=== PATIENT | female | born 1960 | race Caucasian/White ===

== ENCOUNTER 2022-09-06 08:19 | Inpatient (IN) | payer BC, SELFPAY ==
[~2022-09-06] VITALS: Ht 162.6 cm; Wt 98.1 kg
[2022-09-06] MEDS ORDERED: AMIT25TA17 PO (08:49)
[2022-09-06] MEDS ORDERED: LEVO100T5 PO (08:49)
[2022-09-06] MEDS ORDERED: JARD1TAB PO (08:49)
[2022-09-06] MEDS ORDERED: FLUO40CA PO (08:49)
[2022-09-06] MEDS ORDERED: ENTR1TAB PO (08:49)
[2022-09-06] MEDS ORDERED: METO1TAB32 (08:49)
[2022-09-06] MEDS ORDERED: OMEP10CASR PO (08:49)
[2022-09-06] MEDS ORDERED: ROSU20TA5 PO (08:49)
[2022-09-06] MEDS ORDERED: ASPI81CH33 PO (08:49)
[2022-09-06 10:11] LABS: BASO % 0.6 % (0.0-1.0); EOS # 0.1 10^3/uL (0.0-0.5); EOS % 2.3 % (0.0-3.0); HEMATOCRIT 42.5 % (36.0-47.0); HEMOGLOBIN 13.8 g/dl (12.0-15.5); LYMPH # 1.5 10^3/uL (1.5-5.0); LYMPH % 29.8 % (24.0-44.0); MEAN CORPUSCULAR HEMOGLOBIN 30.9 pg (27.0-33.0); MEAN CORPUSCULAR HGB CONC 32.5 g/dl (32.0-36.5); MEAN CORPUSCULAR VOLUME 95.3 fl (80.0-96.0); MONO # 0.4 10^3/uL (0.0-0.8); MONO % 8.2 % (2.0-8.0); NEUTROPHILS # 2.9 10^3/uL (1.5-8.5); NEUTROPHILS % 58.7 % (36.0-66.0); PLATELET COUNT, AUTOMATED 252 10^3/uL (150-450); RED BLOOD COUNT 4.46 10^6/uL (4.00-5.40); WHITE BLOOD COUNT 4.9 10^3/uL (4.0-10.0)
[2022-09-06 10:27] LABS: INR 0.89; PROTHROMBIN TIME 12.2 SECONDS (12.5-14.5)
[2022-09-06 10:33] LABS: BLOOD UREA NITROGEN 18 MG/DL (9-23); CALCIUM LEVEL 8.7 MG/DL (8.3-10.6); CARBON DIOXIDE LEVEL 31 MMOL/L (20-31); CHLORIDE LEVEL 106 MMOL/L (98-107); CK-MB VALUE MASS 1.3 NG/ML (<3.6); CPK CREATINE PHOSPHOKINASE 67 U/L (34-145); CREATININE FOR GFR 0.57 MG/DL (0.55-1.30); GLOMERULAR FILTRATION RATE > 60.0 (>45); GLUCOSE, FASTING 95 MG/DL (74-106); MB/CK RELATIVE INDEX 1.94 (< OR =4); POTASSIUM SERUM 4.5 MMOL/L (3.5-5.1); SODIUM LEVEL 142 MMOL/L (136-145)
[2022-09-06 11:21] LABS: RSV AMPLIFICATION NEGATIVE (NEGATIVE)
[2022-09-06 11:24] LABS: ERYTHROCYTE SEDIMENTATION RATE 19 mm/hr (0-30)
[2022-09-06] MEDS ORDERED: METOCLOPRAMIDE INJ 10MG/2ML VIAL IV ONE (12:30)
[2022-09-06] MEDS ORDERED: ACETAMINOPHEN TAB 650MG DOSE (2X325MG) PO ONE (12:30)
[2022-09-06] MEDS ORDERED: ASPIRIN 81MG CHEW TABLET PO ONE (12:35)
[2022-09-06] MEDS: CLOPIDOGREL 75 MG TAB PO SCH (13:40)
[2022-09-06] MEDS: ENOXAPARIN 40MG/0.4ML SYRINGE (J1650 PER 10MG) SC SCH (13:41)
[2022-09-06] MEDS ORDERED: ASPI81TA26 PO (14:06)
[2022-09-06] MEDS ORDERED: VITA200031 PO (14:06)
[2022-09-06] MEDS ORDERED: METO1TAB33 PO (14:06)
[2022-09-06] MEDS ORDERED: ZEGE20CA4 PO (14:06)
[2022-09-06] MEDS ORDERED: MAGN400T2 PO (14:06)
[2022-09-06] MEDS ORDERED: HOME MED LIST COMPLETE! XX SCH (14:10)
[2022-09-06] MEDS: MAGNESIUM OXIDE 400MG TAB (MAG-OX) PO SCH (15:26)
[2022-09-06] MEDS: METOPROLOL SUCC (TopROL XL) 100MG *XL* TAB PO SCH (15:26)
[2022-09-06] MEDS: ENTRESTO 24-26MG TABLET (SACUBITRIL/VALSARTAN) PO SCH ×2 (15:30→21:00)
[2022-09-06 15:45] VITALS: BP 139/67
[2022-09-06 20:00] VITALS: BP 128/66
[2022-09-06] MEDS: FLUoxetine 20MG CAP PO SCH (20:53)
[2022-09-06] MEDS: AMITRIPTYLINE 25MG TABLET PO SCH (20:53)
[2022-09-06] MEDS: ROSUVASTATIN 10 MG TAB (CRESTOR) PO SCH (20:53)
[2022-09-06] MEDS ORDERED: diphenhydrAMINE 50MG/ML VIAL IV STA (21:00)
[2022-09-06] MEDS ORDERED: FAMOTIDINE 20 MG TAB PO STA (21:00)
[2022-09-06] MEDS ORDERED: ENTRESTO 24-26MG TABLET (SACUBITRIL/VALSARTAN) PO SCH (21:00)
[2022-09-06] MEDS ORDERED: ISOVUE-370 76% 100ML VIAL As Ordered ONE (21:16)
[2022-09-07] VITALS (9 sets, daily range): BP systolic 94–153; BP diastolic 56–84
[2022-09-07] MEDS ORDERED: ACETAMINOPHEN TAB 650MG DOSE (2X325MG) PO ONE (01:00)
[2022-09-07] MEDS: LEVOTHYROXINE 100MCG TABLET (0.1MG) PO SCH (06:15)
[2022-09-07 06:28] LABS: HEMATOCRIT 40.9 % (36.0-47.0); HEMOGLOBIN 13.2 g/dl (12.0-15.5); MEAN CORPUSCULAR HEMOGLOBIN 30.8 pg (27.0-33.0); MEAN CORPUSCULAR HGB CONC 32.3 g/dl (32.0-36.5); MEAN CORPUSCULAR VOLUME 95.6 fl (80.0-96.0); PLATELET COUNT, AUTOMATED 251 10^3/uL (150-450); RED BLOOD COUNT 4.28 10^6/uL (4.00-5.40); WHITE BLOOD COUNT 4.5 10^3/uL (4.0-10.0)
[2022-09-07 06:55] LABS: BLOOD UREA NITROGEN 20 MG/DL (9-23); CALCIUM LEVEL 8.5 MG/DL (8.3-10.6); CARBON DIOXIDE LEVEL 29 MMOL/L (20-31); CHLORIDE LEVEL 105 MMOL/L (98-107); CREATININE FOR GFR 0.72 MG/DL (0.55-1.30); GLOMERULAR FILTRATION RATE > 60.0 (>45); GLUCOSE, FASTING 89 MG/DL (74-106); MAGNESIUM LEVEL 2.2 MG/DL (1.8-2.4); PHOSPHORUS LEVEL 5.9 MG/DL (2.4-5.1); POTASSIUM SERUM 5.3 MMOL/L (3.5-5.1); SODIUM LEVEL 141 MMOL/L (136-145)
[2022-09-07] MEDS ORDERED: NS 1,000 ML IV ONE (07:15)
[2022-09-07] MEDS: ENTRESTO 24-26MG TABLET (SACUBITRIL/VALSARTAN) PO SCH ×2 (08:30→20:22)
[2022-09-07] MEDS: METOPROLOL SUCC (TopROL XL) 100MG *XL* TAB PO SCH (08:30)
[2022-09-07] MEDS: CLOPIDOGREL 75 MG TAB PO SCH (08:40)
[2022-09-07] MEDS: ENOXAPARIN 40MG/0.4ML SYRINGE (J1650 PER 10MG) SC SCH (08:40)
[2022-09-07] MEDS: MAGNESIUM OXIDE 400MG TAB (MAG-OX) PO SCH (08:40)
[2022-09-07] MEDS: ASPIRIN 81MG ENTERIC TABLET PO SCH (08:40)
[2022-09-07] MEDS: POLYVINYL ALCOHOL OPHTH SOLN 15ML (LIQUITEARS) OU SCH ×3 (08:48→20:22)
[2022-09-07] MEDS: AMITRIPTYLINE 25MG TABLET PO SCH (20:21)
[2022-09-07] MEDS: FLUoxetine 20MG CAP PO SCH (20:21)
[2022-09-07] MEDS: ROSUVASTATIN 10 MG TAB (CRESTOR) PO SCH (20:21)
[2022-09-08 03:25] VITALS: BP 105/50
[2022-09-08] MEDS: LEVOTHYROXINE 100MCG TABLET (0.1MG) PO SCH (05:08)
[2022-09-08] MEDS ORDERED: diphenhydrAMINE 50MG/ML VIAL IV STA (07:23)
[2022-09-08] MEDS ORDERED: FAMOTIDINE 20 MG TAB PO ONE (07:25)
[2022-09-08] MEDS: ENTRESTO 24-26MG TABLET (SACUBITRIL/VALSARTAN) PO SCH ×2 (07:27→20:06)
[2022-09-08] MEDS: METOPROLOL SUCC (TopROL XL) 100MG *XL* TAB PO SCH (07:27)
[2022-09-08] MEDS: MAGNESIUM OXIDE 400MG TAB (MAG-OX) PO SCH (07:39)
[2022-09-08] MEDS: ENOXAPARIN 40MG/0.4ML SYRINGE (J1650 PER 10MG) SC SCH (07:39)
[2022-09-08] MEDS: ASPIRIN 81MG ENTERIC TABLET PO SCH (07:39)
[2022-09-08] MEDS: POLYVINYL ALCOHOL OPHTH SOLN 15ML (LIQUITEARS) OU SCH ×3 (07:39→20:06)
[2022-09-08] MEDS: CLOPIDOGREL 75 MG TAB PO SCH (07:39)
[2022-09-08 08:03] LABS: BLOOD UREA NITROGEN 19 MG/DL (9-23); CALCIUM LEVEL 8.5 MG/DL (8.3-10.6); CARBON DIOXIDE LEVEL 28 MMOL/L (20-31); CHLORIDE LEVEL 106 MMOL/L (98-107); CREATININE FOR GFR 0.61 MG/DL (0.55-1.30); GLOMERULAR FILTRATION RATE > 60.0 (>45); GLUCOSE, FASTING 92 MG/DL (74-106); POTASSIUM SERUM 4.4 MMOL/L (3.5-5.1); SODIUM LEVEL 140 MMOL/L (136-145)
[2022-09-08] MEDS ORDERED: ISOVUE-370 76% 100ML VIAL As Ordered ONE ×2 (08:04→08:28)
[2022-09-08 09:30] VITALS: BP 114/55
[2022-09-08 10:03] LABS: THYROID STIMULATING HORMONE 2.184 uIU/ML (0.55-4.78)
[2022-09-08 12:00] VITALS: BP 137/65
[2022-09-08] MEDS ORDERED: diphenhydrAMINE 50MG/ML VIAL IV ONE (14:00)
[2022-09-08 16:00] VITALS: BP 152/72
[2022-09-08 20:00] VITALS: BP 120/74
[2022-09-08] MEDS: AMITRIPTYLINE 25MG TABLET PO SCH (20:06)
[2022-09-08] MEDS: FLUoxetine 20MG CAP PO SCH (20:06)
[2022-09-08] MEDS: ROSUVASTATIN 10 MG TAB (CRESTOR) PO SCH (20:06)
[2022-09-09] VITALS: BP 125/65
[2022-09-09 04:00] VITALS: BP 139/58
[2022-09-09] MEDS: LEVOTHYROXINE 100MCG TABLET (0.1MG) PO SCH (05:13)
[2022-09-09 08:21] VITALS: BP 140/77
[2022-09-09] MEDS: ASPIRIN 81MG ENTERIC TABLET PO SCH (09:58)
[2022-09-09] MEDS: CLOPIDOGREL 75 MG TAB PO SCH (09:58)
[2022-09-09] MEDS: MAGNESIUM OXIDE 400MG TAB (MAG-OX) PO SCH (09:58)
[2022-09-09] MEDS: ENOXAPARIN 40MG/0.4ML SYRINGE (J1650 PER 10MG) SC SCH (09:58)
[2022-09-09] MEDS: POLYVINYL ALCOHOL OPHTH SOLN 15ML (LIQUITEARS) OU SCH ×3 (09:59→20:18)
[2022-09-09] MEDS: METOPROLOL SUCC (TopROL XL) 100MG *XL* TAB PO SCH (10:52)
[2022-09-09] MEDS: ENTRESTO 24-26MG TABLET (SACUBITRIL/VALSARTAN) PO SCH ×2 (10:52→20:17)
[2022-09-09 11:57] VITALS: BP 145/66
[2022-09-09 16:34] VITALS: BP 143/65
[2022-09-09 20:00] VITALS: BP 139/69
[2022-09-09] MEDS: ROSUVASTATIN 10 MG TAB (CRESTOR) PO SCH (20:16)
[2022-09-09] MEDS: AMITRIPTYLINE 25MG TABLET PO SCH (20:17)
[2022-09-09] MEDS: FLUoxetine 20MG CAP PO SCH (20:18)
[2022-09-10] VITALS (8 sets, daily range): BP systolic 102–149; BP diastolic 51–85
[2022-09-10] MEDS: LEVOTHYROXINE 100MCG TABLET (0.1MG) PO SCH (05:09)
[2022-09-10 06:02] LABS: HEMATOCRIT 39.7 % (36.0-47.0); HEMOGLOBIN 12.8 g/dl (12.0-15.5); MEAN CORPUSCULAR HEMOGLOBIN 30.8 pg (27.0-33.0); MEAN CORPUSCULAR HGB CONC 32.2 g/dl (32.0-36.5); MEAN CORPUSCULAR VOLUME 95.7 fl (80.0-96.0); PLATELET COUNT, AUTOMATED 220 10^3/uL (150-450); RED BLOOD COUNT 4.15 10^6/uL (4.00-5.40); WHITE BLOOD COUNT 4.9 10^3/uL (4.0-10.0)
[2022-09-10 06:32] LABS: BLOOD UREA NITROGEN 18 MG/DL (9-23); CALCIUM LEVEL 8.6 MG/DL (8.3-10.6); CARBON DIOXIDE LEVEL 30 MMOL/L (20-31); CHLORIDE LEVEL 106 MMOL/L (98-107); CREATININE FOR GFR 0.67 MG/DL (0.55-1.30); GLOMERULAR FILTRATION RATE > 60.0 (>45); GLUCOSE, FASTING 94 MG/DL (74-106); MAGNESIUM LEVEL 2.1 MG/DL (1.8-2.4); PHOSPHORUS LEVEL 4.9 MG/DL (2.4-5.1); POTASSIUM SERUM 4.5 MMOL/L (3.5-5.1); SODIUM LEVEL 143 MMOL/L (136-145)
[2022-09-10] MEDS: CLOPIDOGREL 75 MG TAB PO SCH (08:41)
[2022-09-10] MEDS: ENTRESTO 24-26MG TABLET (SACUBITRIL/VALSARTAN) PO SCH ×2 (08:41→21:25)
[2022-09-10] MEDS: ASPIRIN 81MG ENTERIC TABLET PO SCH (08:41)
[2022-09-10] MEDS: POLYVINYL ALCOHOL OPHTH SOLN 15ML (LIQUITEARS) OU SCH ×3 (08:42→21:25)
[2022-09-10] MEDS: MAGNESIUM OXIDE 400MG TAB (MAG-OX) PO SCH (08:42)
[2022-09-10] MEDS: METOPROLOL SUCC (TopROL XL) 100MG *XL* TAB PO SCH (08:42)
[2022-09-10] MEDS: ENOXAPARIN 40MG/0.4ML SYRINGE (J1650 PER 10MG) SC SCH (08:43)
[2022-09-10] MEDS: FLUoxetine 20MG CAP PO SCH (21:24)
[2022-09-10] MEDS: ROSUVASTATIN 10 MG TAB (CRESTOR) PO SCH (21:24)
[2022-09-10] MEDS: AMITRIPTYLINE 25MG TABLET PO SCH (23:04)
[2022-09-11] MEDS: LEVOTHYROXINE 100MCG TABLET (0.1MG) PO SCH (05:14)
[2022-09-11 06:00] VITALS: BP 80/55
[2022-09-11 06:50] VITALS: BP 114/62
[2022-09-11] MEDS: ENTRESTO 24-26MG TABLET (SACUBITRIL/VALSARTAN) PO SCH ×2 (09:00→19:52)
[2022-09-11] MEDS: METOPROLOL SUCC (TopROL XL) 100MG *XL* TAB PO SCH (09:00)
[2022-09-11] MEDS: ENOXAPARIN 40MG/0.4ML SYRINGE (J1650 PER 10MG) SC SCH (09:08)
[2022-09-11] MEDS: CLOPIDOGREL 75 MG TAB PO SCH (09:08)
[2022-09-11] MEDS: ASPIRIN 81MG ENTERIC TABLET PO SCH (09:08)
[2022-09-11] MEDS: MAGNESIUM OXIDE 400MG TAB (MAG-OX) PO SCH (09:08)
[2022-09-11] MEDS: POLYVINYL ALCOHOL OPHTH SOLN 15ML (LIQUITEARS) OU SCH ×3 (09:11→19:52)
[2022-09-11 09:42] VITALS: BP 118/82
[2022-09-11 14:00] VITALS: BP 110/70
[2022-09-11 19:52] VITALS: BP 108/62
[2022-09-11] MEDS: FLUoxetine 20MG CAP PO SCH (19:58)
[2022-09-11] MEDS: ROSUVASTATIN 10 MG TAB (CRESTOR) PO SCH (19:58)
[2022-09-11 20:00] VITALS: BP 107/60
[2022-09-11] MEDS: AMITRIPTYLINE 25MG TABLET PO SCH (23:00)
[2022-09-12] VITALS (12 sets, daily range): BP systolic 97–176; BP diastolic 56–82
[2022-09-12] MEDS: LEVOTHYROXINE 100MCG TABLET (0.1MG) PO SCH (05:02)
[2022-09-12 06:56] LABS: HEMATOCRIT 38.4 % (36.0-47.0); HEMOGLOBIN 12.4 g/dl (12.0-15.5); MEAN CORPUSCULAR HEMOGLOBIN 30.9 pg (27.0-33.0); MEAN CORPUSCULAR HGB CONC 32.3 g/dl (32.0-36.5); MEAN CORPUSCULAR VOLUME 95.8 fl (80.0-96.0); PLATELET COUNT, AUTOMATED 190 10^3/uL (150-450); RED BLOOD COUNT 4.01 10^6/uL (4.00-5.40)
[2022-09-12 07:17] LABS: BLOOD UREA NITROGEN 17 MG/DL (9-23); CARBON DIOXIDE LEVEL 28 MMOL/L (20-31); CHLORIDE LEVEL 106 MMOL/L (98-107); CREATININE FOR GFR 0.68 MG/DL (0.55-1.30); GLOMERULAR FILTRATION RATE > 60.0 (>45); GLUCOSE, FASTING 90 MG/DL (74-106); POTASSIUM SERUM 4.2 MMOL/L (3.5-5.1); SODIUM LEVEL 141 MMOL/L (136-145)
[2022-09-12] MEDS: MAGNESIUM OXIDE 400MG TAB (MAG-OX) PO SCH (09:02)
[2022-09-12] MEDS: ASPIRIN 81MG ENTERIC TABLET PO SCH (09:03)
[2022-09-12] MEDS: CLOPIDOGREL 75 MG TAB PO SCH (09:03)
[2022-09-12] MEDS: POLYVINYL ALCOHOL OPHTH SOLN 15ML (LIQUITEARS) OU SCH ×3 (09:06→22:43)
[2022-09-12] MEDS: METOPROLOL SUCC (TopROL XL) 100MG *XL* TAB PO SCH (09:07)
[2022-09-12] MEDS: ENOXAPARIN 40MG/0.4ML SYRINGE (J1650 PER 10MG) SC SCH (09:11)
[2022-09-12] MEDS: ENTRESTO 24-26MG TABLET (SACUBITRIL/VALSARTAN) PO SCH ×2 (09:11→21:00)
[2022-09-12] MEDS ORDERED: THROMBIN 20,000 UNITS KIT As Ordered ONE (14:19)
[2022-09-12] MEDS ORDERED: HEPARIN SOD (PORCINE) 5000UNITS/ML 1ML VIAL/SYRINGE As Ordered ONE (14:19)
[2022-09-12] MEDS ORDERED: BUPIVACAINE/EPIN 0.25% 30ML VIAL As Ordered ONE (14:19)
[2022-09-12] MEDS ORDERED: PAPAVERINE HCL 60MG 2ML VIAL (30MG/ML) As Ordered ONE (14:19)
[2022-09-12] MEDS ORDERED: LIDOCAINE 1% SDV 30ML VIAL As Ordered ONE (14:19)
[2022-09-12] MEDS ORDERED: VERAPAMIL 5MG/2ML VIAL As Ordered ONE (14:19)
[2022-09-12] MEDS ORDERED: NITROGLYCERIN IN D5W 25MG/250ML (100MCG/ML) As Ordered ONE ×2 (14:20→16:15)
[2022-09-12] MEDS ORDERED: PHENYLEPHRINE 10MG/ML 1ML VIAL As Ordered ONE (15:13)
[2022-09-12] MEDS ORDERED: METOCLOPRAMIDE INJ 10MG/2ML VIAL As Ordered ONE (15:23)
[2022-09-12] MEDS ORDERED: propofoL 200 MG/20 ML VIAL As Ordered ONE (15:23)
[2022-09-12] MEDS ORDERED: ETOMIDATE INJ 20MG/10ML VIAL As Ordered ONE (15:23)
[2022-09-12] MEDS ORDERED: SUGAMMADEX SODIUM 500 MG/5 ML VIAL (BRIDION) As Ordered ONE (15:23)
[2022-09-12] MEDS ORDERED: MIDAZOLAM INJ 2MG/2ML VIAL As Ordered ONE (15:23)
[2022-09-12] MEDS ORDERED: ONDANSETRON 4MG 2ML VIAL As Ordered ONE (15:23)
[2022-09-12] MEDS ORDERED: fentaNYL 250 MCG/5 ML INJECTION As Ordered ONE (15:23)
[2022-09-12] MEDS ORDERED: ROCURONIUM BROMIDE 50MG/5ML VIAL As Ordered ONE (15:23)
[2022-09-12] MEDS ORDERED: LIDOCAINE 2% 100MG/5ML SDV (FOR ANES.) As Ordered ONE (15:23)
[2022-09-12] MEDS ORDERED: ceFAZolin 2 GM/D5W 50 ML IV BAG As Ordered ONE (17:05)
[2022-09-12] MEDS ORDERED: ceFAZolin 1GM VIAL As Ordered ONE (17:05)
[2022-09-12] MEDS ORDERED: ACETAMINOPHEN 1000MG 100ML IV BAG As Ordered ONE (17:29)
[2022-09-12] MEDS ORDERED: fentaNYL 100 MCG/2 ML INJECTION As Ordered ONE (18:33)
[2022-09-12] MEDS ORDERED: oxyCODONE 5MG TAB PO PRN (20:20)
[2022-09-12] MEDS ORDERED: fentaNYL 100 MCG/2 ML INJECTION IV PRN (20:20)
[2022-09-12] MEDS ORDERED: ONDANSETRON 4MG 2ML VIAL IV PRN (20:20)
[2022-09-12] MEDS ORDERED: LR 1,000 ML IV SCH ×2 (20:20→23:15)
[2022-09-12] MEDS ORDERED: hydrALAZINE 20MG/ML 1ML VIAL As Ordered ONE (20:25)
[2022-09-12] MEDS: niCARdipine IV 40 MG in IV 1 EA IV SCH (20:30)
[2022-09-12] MEDS: ROSUVASTATIN 10 MG TAB (CRESTOR) PO SCH (21:00)
[2022-09-12] MEDS: FLUoxetine 20MG CAP PO SCH (21:00)
[2022-09-12] MEDS: AMITRIPTYLINE 25MG TABLET PO SCH (21:00)
[2022-09-12] MEDS: hydrALAZINE 20MG/ML 1ML VIAL IV PRN (22:19)
[2022-09-13] VITALS (36 sets, daily range): BP systolic 99–172; BP diastolic 53–78
[2022-09-13] MEDS ORDERED: ACETAMINOPHEN 325 MG TAB PO ONE (01:35)
[2022-09-13] MEDS: hydrALAZINE 20MG/ML 1ML VIAL IV PRN ×2 (02:30→07:32)
[2022-09-13] MEDS: niCARdipine IV 40 MG in IV 1 EA IV SCH ×2 (04:30→12:10)
[2022-09-13 05:57] LABS: HEMATOCRIT 37.7 % (36.0-47.0); HEMOGLOBIN 12.6 g/dl (12.0-15.5); MEAN CORPUSCULAR HEMOGLOBIN 31.2 pg (27.0-33.0); MEAN CORPUSCULAR HGB CONC 33.4 g/dl (32.0-36.5); MEAN CORPUSCULAR VOLUME 93.3 fl (80.0-96.0); PLATELET COUNT, AUTOMATED 237 10^3/uL (150-450); RED BLOOD COUNT 4.04 10^6/uL (4.00-5.40); WHITE BLOOD COUNT 9.4 10^3/uL (4.0-10.0)
[2022-09-13 06:19] LABS: BLOOD UREA NITROGEN 18 MG/DL (9-23); CALCIUM LEVEL 8.3 MG/DL (8.3-10.6); CARBON DIOXIDE LEVEL 26 MMOL/L (20-31); CHLORIDE LEVEL 104 MMOL/L (98-107); GLOMERULAR FILTRATION RATE > 60.0 (>45); GLUCOSE, FASTING 100 MG/DL (74-106); POTASSIUM SERUM 4.3 MMOL/L (3.5-5.1); SODIUM LEVEL 138 MMOL/L (136-145)
[2022-09-13] MEDS: LEVOTHYROXINE 100MCG TABLET (0.1MG) PO SCH (06:28)
[2022-09-13] MEDS: ENTRESTO 24-26MG TABLET (SACUBITRIL/VALSARTAN) PO SCH ×2 (09:00→21:22)
[2022-09-13] MEDS: METOPROLOL SUCC (TopROL XL) 100MG *XL* TAB PO SCH (09:00)
[2022-09-13] MEDS: ENOXAPARIN 40MG/0.4ML SYRINGE (J1650 PER 10MG) SC SCH (09:02)
[2022-09-13] MEDS: POLYVINYL ALCOHOL OPHTH SOLN 15ML (LIQUITEARS) OU SCH ×3 (09:02→21:24)
[2022-09-13] MEDS: ASPIRIN 81MG ENTERIC TABLET PO SCH (09:03)
[2022-09-13] MEDS: CLOPIDOGREL 75 MG TAB PO SCH (09:04)
[2022-09-13] MEDS: MAGNESIUM OXIDE 400MG TAB (MAG-OX) PO SCH (09:04)
[2022-09-13] MEDS: ACETAMINOPHEN 500 MG TAB PO PRN ×2 (09:10→21:24)
[2022-09-13] MEDS ORDERED: LORazepam 2 MG/ML 1ML VIAL IV STA (11:47)
[2022-09-13] MEDS ORDERED: **hydrALAZINE** 10 MG TAB PO PRN (12:25)
[2022-09-13] MEDS ORDERED: FLUOXETINE 40 MG PO SCH (21:00)
[2022-09-13] MEDS: ROSUVASTATIN 10 MG TAB (CRESTOR) PO SCH (21:22)
[2022-09-13] MEDS: AMITRIPTYLINE 25MG TABLET PO SCH (21:22)
[2022-09-14] MEDS: ACETAMINOPHEN 500 MG TAB PO PRN (05:13)
[2022-09-14] MEDS: LEVOTHYROXINE 100MCG TABLET (0.1MG) PO SCH (05:13)
[2022-09-14 06:00] VITALS: BP 100/47
[2022-09-14 08:29] VITALS: BP 102/56
[2022-09-14] MEDS: ENTRESTO 24-26MG TABLET (SACUBITRIL/VALSARTAN) PO SCH (08:29)
[2022-09-14] MEDS: ENOXAPARIN 40MG/0.4ML SYRINGE (J1650 PER 10MG) SC SCH (08:29)
[2022-09-14] MEDS: METOPROLOL SUCC (TopROL XL) 100MG *XL* TAB PO SCH (08:29)
[2022-09-14] MEDS: ASPIRIN 81MG ENTERIC TABLET PO SCH (08:30)
[2022-09-14] MEDS: MAGNESIUM OXIDE 400MG TAB (MAG-OX) PO SCH (08:30)
[2022-09-14] MEDS: CLOPIDOGREL 75 MG TAB PO SCH (08:30)
[2022-09-14] MEDS: POLYVINYL ALCOHOL OPHTH SOLN 15ML (LIQUITEARS) OU SCH (08:30)
[2022-09-14 08:47] LABS: HEMATOCRIT 35.1 % (36.0-47.0); HEMOGLOBIN 11.6 g/dl (12.0-15.5); MEAN CORPUSCULAR HEMOGLOBIN 31.8 pg (27.0-33.0); MEAN CORPUSCULAR VOLUME 96.2 fl (80.0-96.0); PLATELET COUNT, AUTOMATED 206 10^3/uL (150-450); RED BLOOD COUNT 3.65 10^6/uL (4.00-5.40); WHITE BLOOD COUNT 7.3 10^3/uL (4.0-10.0)
[2022-09-14] MEDS ORDERED: CLOP75TA2 PO (10:24)
[2022-09-14] MEDS ORDERED: ROSU40TA4 PO ×2 (10:24→10:26)
== END 2022-09-14 12:30 | disposition home or self-care (01) | DRG 950 ==
LOC: M ED 08:19 → M ED INP 13:13 → ENRESERV 14:14 → M PCU 15:45 → M MSPAV 09-10 16:37 → M ICU 09-12 21:05 → M MSPAV 09-13 18:37
PROVIDERS: ADMIT Internal Medicine; ATTEND Internal Medicine
PROC: B246ZZZ Ultrasonography of Right and Left Heart (ICD-10-PCS; principal; 2022-09-06)
PROC: 03CK0ZZ Extirpation of Matter from Right Internal Carotid Artery, Open Approach (ICD-10-PCS; 2022-09-12)
PROC: 03UL0KZ Supplement Left Internal Carotid Artery with Nonautologous Tissue Substitute, Open Approach (ICD-10-PCS; 2022-09-12)
DX: H53.2 Diplopia (principal); I50.42 Chronic combined systolic (congestive) and diastolic (congestive) heart failure; H93.12 Tinnitus, left ear; I25.10 Atherosclerotic heart disease of native coronary artery without angina pectoris; E03.9 Hypothyroidism, unspecified; Z95.5 Presence of coronary angioplasty implant and graft; Z98.84 Bariatric surgery status; Z90.49 Acquired absence of other specified parts of digestive tract; Z90.11 Acquired absence of right breast and nipple; Z79.82 Long term (current) use of aspirin; Z79.890 Hormone replacement therapy; Z79.899 Other long term (current) drug therapy; Z91.041 Radiographic dye allergy status; Z91.048 Other nonmedicinal substance allergy status; Z20.822 Contact with and (suspected) exposure to COVID-19; Z85.71 Personal history of Hodgkin lymphoma; Z92.3 Personal history of irradiation; I65.22 Occlusion and stenosis of left carotid artery

== ENCOUNTER → 2023-01-15 | Outpatient (CLI) | payer BC ==
[~2023-01-15] MED LIST: AMIT25TA17 PO; ASPI81CH33 PO; ASPI81TA26 PO; CLOP75TA2 PO; ENTR1TAB PO; FLUO40CA PO; JARD1TAB PO; LEVO100T5 PO; MAGN400T2 PO; METO1TAB32; METO1TAB33 PO; OMEP10CASR PO; ROSU20TA61 PO; ROSU40TA4 PO; VITA200031 PO; ZEGE20CA4 PO
== END ==
LOC: M RAD 11:09
PROVIDERS: ATTEND Surgery Vascular Surgery
DX: I65.22 Occlusion and stenosis of left carotid artery (principal)

== ENCOUNTER → 2023-12-17 | Outpatient (CLI) ==
[~2023-12-17] MED LIST changes: -AMIT25TA17 PO; +AMIT25TA19 PO; -ROSU40TA4 PO; +ROSU40TA63 PO
== END ==
LOC: M SOG 07:54
PROVIDERS: ATTEND Physician Assistant
DX: M25.562 Pain in left knee (principal); M85.862 Other specified disorders of bone density and structure, left lower leg

== ENCOUNTER 2025-04-06 12:18 | Observation (INO) | payer MEDICARE, OTHER ==
[~2025-04-06] VITALS: Ht 162.6 cm; Wt 104.6 kg
[~2025-04-06 12:18] MED LIST changes: -ROSU20TA61 PO; +ROSU20TA86 PO; -ROSU40TA63 PO; +ROSU40TA81 PO
[2025-04-06 13:44] LABS: BASO # 0.0 10^3/uL (0.0-0.2); BASO % 0.5 % (0.0-1.0); EOS # 0.1 10^3/uL (0.0-0.5); EOS % 2.2 % (0.0-3.0); LYMPH # 1.4 10^3/uL (1.5-5.0); LYMPH % 21.7 % (24.0-44.0); MONO # 0.7 10^3/uL (0.0-0.8); MONO % 10.8 % (2.0-8.0); NEUTROPHILS # 4.2 10^3/uL (1.5-8.5); NEUTROPHILS % 64.5 % (36.0-66.0); PLATELET COUNT, AUTOMATED 254 10^3/uL (150-450)
[2025-04-06] MEDS ORDERED: ROSU40TA81 PO (13:50)
[2025-04-06] MEDS ORDERED: FLUO-365 PO (13:50)
[2025-04-06] MEDS ORDERED: ESOM20CA2 PO (13:50)
[2025-04-06] MEDS ORDERED: METO1TAB7 PO (13:50)
[2025-04-06] MEDS ORDERED: PREG25CA63 PO (13:50)
[2025-04-06] MEDS ORDERED: SPIR-10 PO (13:50)
[2025-04-06] MEDS ORDERED: TRAZ-252 PO (13:50)
[2025-04-06] MEDS ORDERED: HOME MED LIST COMPLETE! XX SCH (13:55)
[2025-04-06 14:16] LABS: CK-MB VALUE MASS 1.8 NG/ML (<3.6)
[2025-04-06 14:19] LABS: CALCIUM LEVEL 8.4 MG/DL (8.3-10.6); CARBON DIOXIDE LEVEL 26.0 MMOL/L (20-31); CHLORIDE LEVEL 105.0 MMOL/L (98-107); CREATININE FOR GFR 0.81 MG/DL (0.55-1.30); GLOMERULAR FILTRATION RATE 81.0 (>45); MAGNESIUM LEVEL 2.4 MG/DL (1.8-2.4); POTASSIUM SERUM 5.6 MMOL/L (3.5-5.1); SODIUM LEVEL 142.0 MMOL/L (136-145)
[2025-04-06 14:21] LABS: FREE T4 1.19 NG/DL (0.89-1.76)
[2025-04-06 14:24] LABS: CPK CREATINE PHOSPHOKINASE 91.0 U/L (34-145); MB/CK RELATIVE INDEX 1.97 (< OR =4)
[2025-04-06 14:43] LABS: CK-MB VALUE MASS 1.5 NG/ML (<3.6)
[2025-04-06 14:45] LABS: CPK CREATINE PHOSPHOKINASE 90.0 U/L (34-145); MB/CK RELATIVE INDEX 1.66 (< OR =4)
[2025-04-06] MEDS: NS (Normal Saline) 0.9% 1,000 ML IV ONE (14:55)
[2025-04-06 15:10] LABS: KETONE, URINE AUTO RFX NEGATIVE (NEGATIVE); LEUKOCYTE ESTERASE UR AUTO RFX NEGATIVE (NEGATIVE); MUCUS, URINE RFX SMALL (NEGATIVE); NITRITE, URINE AUTO RFX NEGATIVE (NEGATIVE); RBC, URINE AUTO RFX 0 /HPF (0-3); SQUAM EPITHELIAL CELL UR AURFX 0 /HPF (0-6); WBC, URINE AUTO RFX 1 /HPF (0-3)
[2025-04-06] MEDS: diphenhydrAMINE 50 MG/ML VIAL IV ONE (15:39)
[2025-04-06] MEDS ORDERED: ISOVUE-370 76% 100 ML VIAL As Ordered ONE (16:12)
[2025-04-06] MEDS ORDERED: PREGABALIN 25 MG CAP PO PRN (18:25)
[2025-04-06] MEDS ORDERED: **hydrALAZINE HCL** 25 MG TAB PO PRN (18:30)
[2025-04-06] MEDS ORDERED: hydrALAZINE 20 MG/ML 1 ML VIAL IV PRN (18:35)
[2025-04-06] MEDS: PATIROMER SORBITEX CALCIUM 8.4GM POWDER PACKET PO ONE (18:47)
[2025-04-06] MEDS: METOPROLOL SUCC. 50 MG *XL* TAB PO SCH (18:47)
[2025-04-06 22:41] VITALS: BP 164/72; TEMP 97.7; O2SAT 94
[2025-04-06] MEDS: ROSUVASTATIN 10 MG TAB PO SCH (22:54)
[2025-04-06] MEDS: FLUoxetine 20 MG CAP PO SCH (22:55)
[2025-04-07] VITALS (7 sets, daily range): BP systolic 135–168; BP diastolic 64–80; TEMP 97.1–98.7; O2SAT 95–97
[2025-04-07] MEDS: LEVOTHYROXINE 100 MCG TABLET (0.1 MG) PO SCH (05:59)
[2025-04-07 06:13] LABS: PLATELET COUNT, AUTOMATED 298 10^3/uL (150-450)
[2025-04-07 06:46] LABS: CALCIUM LEVEL 8.8 MG/DL (8.3-10.6); CARBON DIOXIDE LEVEL 25 MMOL/L (20-31); CHLORIDE LEVEL 107 MMOL/L (98-107); CREATININE FOR GFR 0.63 MG/DL (0.55-1.30); GLOMERULAR FILTRATION RATE > 90.0 (>45); POTASSIUM SERUM 4.4 MMOL/L (3.5-5.1); SODIUM LEVEL 143 MMOL/L (136-145)
[2025-04-07 08:02] LABS: C REACTIVE PROTEIN QUANTITATIV < 0.50 MG/DL (<1.0)
[2025-04-07] MEDS ORDERED: METOPROLOL SUCC. 50 MG *XL* TAB PO SCH (09:00)
[2025-04-07] MEDS: OMEPRAZOLE 20MG CAP PO SCH (09:07)
[2025-04-07] MEDS: FLUoxetine 20 MG CAP PO SCH (09:07)
[2025-04-07] MEDS: MAGNESIUM OXIDE 400 MG TAB PO SCH (09:07)
[2025-04-07] MEDS: ASPIRIN 81 MG ENTERIC TABLET PO SCH (09:07)
[2025-04-07] MEDS: ENOXAPARIN 40 MG/0.4 ML SYRINGE (J1650 PER 10MG) SC SCH (09:08)
[2025-04-07] MEDS ORDERED: MECLIZINE 25 MG TABLET PO PRN (11:20)
[2025-04-07] MEDS: ENTRESTO 24-26 MG TABLET (SACUBITRIL/VALSARTAN) PO SCH (15:26)
[2025-04-07] MEDS: ACETAMINOPHEN *IV* 1,000 MG in IV 1 EA IV ONE (17:58)
[2025-04-07] MEDS: traZODone 50 MG TAB PO PRN (20:01)
[2025-04-08] VITALS (7 sets, daily range): BP systolic 122–132; BP diastolic 58–96; TEMP 97.3–97.6; O2SAT 76–97
[2025-04-08 05:48] LABS: BASO # 0.0 10^3/uL (0.0-0.2); BASO % 0.5 % (0.0-1.0); EOS # 0.1 10^3/uL (0.0-0.5); EOS % 1.0 % (0.0-3.0); LYMPH # 2.1 10^3/uL (1.5-5.0); LYMPH % 34.0 % (24.0-44.0); MONO # 0.6 10^3/uL (0.0-0.8); MONO % 10.1 % (2.0-8.0); NEUTROPHILS # 3.3 10^3/uL (1.5-8.5); NEUTROPHILS % 54.2 % (36.0-66.0); PLATELET COUNT, AUTOMATED 264 10^3/uL (150-450)
[2025-04-08 06:07] LABS: CALCIUM LEVEL 8.3 MG/DL (8.3-10.6); CARBON DIOXIDE LEVEL 26 MMOL/L (20-31); CHLORIDE LEVEL 108 MMOL/L (98-107); CREATININE FOR GFR 0.71 MG/DL (0.55-1.30); GLOMERULAR FILTRATION RATE > 90.0 (>45); POTASSIUM SERUM 4.3 MMOL/L (3.5-5.1); SODIUM LEVEL 146 MMOL/L (136-145)
[2025-04-08] MEDS: D5W 500 ML IV ONE (06:58)
[2025-04-08] MEDS ORDERED: MECL-209 PO (12:56)
== END 2025-04-08 14:11 | disposition home or self-care (01) ==
LOC: M ED 12:18 → M ED INP 12:19 → M PCU 22:36
PROVIDERS: ADMIT Internal Medicine; ATTEND Internal Medicine
DX: I16.9 Hypertensive crisis, unspecified (principal); R06.00 Dyspnea, unspecified; R55 Syncope and collapse; R42 Dizziness and giddiness; E87.5 Hyperkalemia; R50.9 Fever, unspecified; R78.81 Bacteremia; R53.1 Weakness; I50.9 Heart failure, unspecified; I08.0 Rheumatic disorders of both mitral and aortic valves; I25.10 Atherosclerotic heart disease of native coronary artery without angina pectoris; Z95.5 Presence of coronary angioplasty implant and graft; I11.0 Hypertensive heart disease with heart failure; I65.22 Occlusion and stenosis of left carotid artery; F41.9 Anxiety disorder, unspecified; F32.A Depression, unspecified; G62.9 Polyneuropathy, unspecified; K21.9 Gastro-esophageal reflux disease without esophagitis; E03.9 Hypothyroidism, unspecified; Z91.048 Other nonmedicinal substance allergy status; Z91.041 Radiographic dye allergy status; Z79.899 Other long term (current) drug therapy; Z79.82 Long term (current) use of aspirin; Z79.890 Hormone replacement therapy
CPT/HCPCS: 36415; 70450; 71045; 71275; 80048; 81001; 82550; 82553; 83605; 83735; 84145; 84439; 84443; 84484; 85025; 85027; 86140; 87040; 87077; 87154; 87186; 87486; 87581; 87633; 87798; 93005; 93041; 93306; 94760; 96372; 96374; 96375; 97161; 99285; J0131; J1200; J1650; J2765; J2919; Q9967

== ENCOUNTER → 2025-04-12 | Outpatient (REF) | payer BC ==
[~2025-04-12] MED LIST changes: +ESOM20CA2 PO; +FLUO-365 PO; +MECL-209 PO; +METO1TAB7 PO; +PREG25CA63 PO; +SPIR-10 PO; +TRAZ-252 PO
[2025-04-12 18:19] LABS: C REACTIVE PROTEIN QUANTITATIV < 0.50 MG/DL (<1.0)
[2025-04-12 18:20] LABS: ALT/SGPT 21 U/L (7.0-40); AST/SGOT 23 U/L (<34); CALCIUM LEVEL 8.3 MG/DL (8.3-10.6); CARBON DIOXIDE LEVEL 30 MMOL/L (20-31); CHLORIDE LEVEL 107 MMOL/L (98-107); CREATININE FOR GFR 0.73 MG/DL (0.55-1.30); GLOMERULAR FILTRATION RATE > 90.0 (>45); POTASSIUM SERUM 4.5 MMOL/L (3.5-5.1); SODIUM LEVEL 144 MMOL/L (136-145)
[2025-04-12 18:26] LABS: BASO # 0.0 10^3/uL (0.0-0.2); BASO % 0.7 % (0.0-1.0); EOS # 0.2 10^3/uL (0.0-0.5); EOS % 3.6 % (0.0-3.0); LYMPH # 1.4 10^3/uL (1.5-5.0); LYMPH % 25.0 % (24.0-44.0); MONO # 0.5 10^3/uL (0.0-0.8); MONO % 9.1 % (2.0-8.0); NEUTROPHILS # 3.5 10^3/uL (1.5-8.5); NEUTROPHILS % 61.2 % (36.0-66.0); PLATELET COUNT, AUTOMATED 276 10^3/uL (150-450)
[2025-04-12 18:36] LABS: ERYTHROCYTE SEDIMENTATION RATE 25 mm/hr (0-30)
== END ==
LOC: M LAB REF 17:14
PROVIDERS: ATTEND Internal Medicine
DX: M15.9 Polyosteoarthritis, unspecified (principal); I50.22 Chronic systolic (congestive) heart failure

== ENCOUNTER → 2025-05-10 | Outpatient (CLI) | payer OTHER | LOC: M RAD 13:35 | PROVIDERS: ATTEND Internal Medicine | DX: M17.11 Unilateral primary osteoarthritis, right knee (principal) ==

== ENCOUNTER → 2025-06-07 | Outpatient (REF) | payer OTHER ==
[2025-06-07 15:32] LABS: IRON (FE) 96.0 UG/DL (50-170); VITAMIN B12 LEVEL 323.0 PG/ML (211-911)
[2025-06-07 15:33] LABS: PERCENT SATURATION 23.9 % (13.2-45.0)
== END ==
LOC: M LAB REF 14:57
PROVIDERS: ATTEND Internal Medicine
DX: D64.9 Anemia, unspecified (principal); R53.83 Other fatigue; Z98.84 Bariatric surgery status